=== PATIENT | female | born 1965 | race Caucasian/White ===

== ENCOUNTER 2018-05-10 17:28 | Emergency (ER) | payer OTHER ==
[~2018-05-10] VITALS: Ht 172.7 cm; Wt 70.3 kg
[~2018-05-10 17:28] MED LIST: ALBU90OI61 INH; CEPH500 PO; HYDACE5 PO; METPRE4DP PO; NAPR500 PO; PRED10 PO; Ventolin/Prove6.7 GM INH
[2018-05-10] MEDS ORDERED: BENADRYL25 MG PO (18:32)
[2018-05-10] MEDS ORDERED: Monodox100 MG PO (18:32)
== END 2018-05-10 18:36 | disposition home or self-care (01) ==
LOC: ER 17:28
DX: L03.113 Cellulitis of right upper limb (principal); F17.200 Nicotine dependence, unspecified, uncomplicated; Z88.2 Allergy status to sulfonamides
CPT/HCPCS: 99283; Q0163

== ENCOUNTER → 2018-09-01 | Outpatient (CLI) | payer OTHER ==
[~2018-09-01] MED LIST changes: +BENADRYL25 MG PO; +Monodox100 MG PO
[2018-09-02 14:01] LABS: Stool Occult Bld Immuno 1 Negative (NEGATIVE)
== END | disposition home or self-care (01) ==
LOC: LAB 11:30 → LAB SHORT 11:30
PROVIDERS: Family Medicine
DX: Z12.11 Encounter for screening for malignant neoplasm of colon (principal)
CPT/HCPCS: G0328

== ENCOUNTER 2021-03-30 17:28 | Emergency (ER) | payer OTHER ==
[~2021-03-30] VITALS: Ht 172.7 cm; Wt 856.8 kg
== END 2021-03-30 21:00 | disposition home or self-care (01) ==
LOC: ER 17:28
DX: S43.52XA Sprain of left acromioclavicular joint, initial encounter (principal); W18.11XA Fall from or off toilet without subsequent striking against object, initial encounter; M19.011 Primary osteoarthritis, right shoulder; J45.909 Unspecified asthma, uncomplicated; Z88.2 Allergy status to sulfonamides
CPT/HCPCS: 29105; 73030; 96372-59; 99283-25; J1885

== ENCOUNTER → 2025-04-12 | Outpatient (CLI) | payer OTHER ==
[2025-04-13 15:29] LABS: Candida Group, PCR NOT DETECTED (NOT DETECT); Candida glabrata-krusei, PCR NOT DETECTED (NOT DETECT)
[2025-04-13 15:30] LABS: Bacterial Vaginosis PCR Positive (NEGATIVE)
== END ==
LOC: LAB 16:50 → LAB SHORT 16:50
PROVIDERS: Family Medicine
DX: N76.0 Acute vaginitis (principal); L02.91 Cutaneous abscess, unspecified
CPT/HCPCS: 81515; 87070; 87075; 87077; 87147; 87186; 87205